=== PATIENT | male | born 1975 | race Caucasian/White ===

== ENCOUNTER 2023-12-25 05:23 | Day surgery (SDC) | payer MEDICAID ==
[2023-12-14 14:27] LABS: BASOPHILS # (AUTO) 0.1 X10'3 (0-0.2); BASOPHILS % (AUTO) 0.7 % (0-1); EOSINOPHILS # (AUTO) 0.5 X10'3 (0-0.9); EOSINOPHILS % (AUTO) 5.2 % (0-6); LYMPHOCYTES % (AUTO) 19.5 % (21-51); MEAN CORPUSCULAR HEMOGLOBIN 29.1 PG (27.0-31.0); MEAN CORPUSCULAR HGB CONC 33.8 g/dL (33.0-36.5); MEAN CORPUSCULAR VOLUME 86.2 FL (78-98); MEAN PLATELET VOLUME 7.9 FL (7.4-10.4); MONOCYTES # (AUTO) 0.6 X10'3 (0-0.9); MONOCYTES % (AUTO) 5.5 % (2-12); NEUTROPHILS # (AUTO) 7.1 X10'3 (1.8-7.7); NEUTROPHILS % (AUTO) 69.1 % (42-75); PRE OP HEMATOCRIT 44.4 % (42.0-52.0); PRE OP PLATELET COUNT 291 X10'3 (140-440); PRE OP WHITE BLOOD COUNT 10.3 10'3 (4.8-10.8); RED BLOOD COUNT 5.15 X10'6 (4.70-6.10); RED CELL DISTRIBUTION WIDTH 14.2 % (11.5-14.5)
[2023-12-14 14:36] LABS: BILIRUBIN,URINE NEGATIVE (Neg); CLARITY,URINE CLEAR (Clear); COLOR,URINE YELLOW (Yellow); GLUCOSE, URINE NEGATIVE (Neg); KETONES,URINE NEGATIVE (Neg); LEUKOCYTE ESTERASE ,URINE NEGATIVE (Neg); NITRITES, URINE NEGATIVE (Neg); OCCULT BLOOD,URINE NEGATIVE (Neg); PH,URINE 5.5 (4.8-8.0); PROTEIN,URINE NEGATIVE (Neg); UROBILINOGEN,URINE 0.2 E.U/dL (0.2-1.0)
[2023-12-14 14:43] LABS: UA COLLECTION TYPE CLN CATCH MIDSTREAM
[2023-12-14 14:57] LABS: ALBUMIN 3.7 G/DL (3.4-5.0); ALBUMIN/GLOBULIN RATIO 0.9 (1.1-1.5); ALKALINE PHOSPHATASE 120 IU/L (46-116); BLOOD UREA NITROGEN 21 MG/DL (7-18); BUN/CREATININE RATIO 18.6 (10.0-20.0); CALCIUM 8.8 MG/DL (8.5-10.1); CHLORIDE 106 MMOL/L (99-107); CREATININE 1.13 MG/DL (0.60-1.10); PRE OP ALT 36 U/L (30-65); PRE OP ANION GAP 5 (8-16); PRE OP AST 22 U/L (10-37); PRE OP BILIRUB, TOTAL 0.4 MG/DL (0.0-1.0); PRE OP GLUCOSE 84 MG/DL (70-104); PRE OP POTASSIUM 4.1 MMOL/L (3.4-5.1); PRE OP SODIUM 139 MMOL/L (135-145); eGFR 70 ML/MIN
[2023-12-14 15:13] LABS: PLATELET ESTIMATE NORMAL; TOTAL CELLS COUNTED 100; TOXIC GRANULATION 1+
[2023-12-25] VITALS (8 sets, daily range): BP systolic 115–129; BP diastolic 69–87; PULSE 60–76; RESP 13–16; TEMP 97.2; O2SAT 95–98
[~2023-12-25] VITALS: Ht 170.2 cm; Wt 119.0 kg
[~2023-12-25 05:23] MED LIST: CANNABIS INH
[2023-12-25] MEDS: famotidine 20mg tablet PO ONE (06:03)
[2023-12-25] MEDS: ringers solution, lacted 1,000 ML IV SCH ×2 (06:03→09:12)
[2023-12-25] MEDS: cefazolin 2gm/D5W 100mL 100 ML IV ONE (06:04)
[2023-12-25] MEDS ORDERED: bacitracin 15gm ointment TP ONE (06:41)
[2023-12-25] MEDS ORDERED: BUPIVAcaine/PF 2.5mg/ml (0.25%) 10ml vial ONE (06:41)
[2023-12-25] MEDS ORDERED: fentaNYL/PF 50MCG/1 ML 2ML syringe ONE (07:24)
[2023-12-25] MEDS ORDERED: MIDAZolam 1 MG/ML 5ML VIAL ONE (07:24)
[2023-12-25] MEDS ORDERED: sevoflurane 250ml liquid IH ONE (07:25)
[2023-12-25] MEDS ORDERED: cloNIDine hcl/PF 100mcg/ml inj ONE (07:28)
[2023-12-25] MEDS ORDERED: ROPIVAcaine 0.5% (5mg/ml) 30ml vial ONE (07:43)
[2023-12-25] MEDS ORDERED: rocuronium 10mg/ml inj IV ONE (08:06)
[2023-12-25] MEDS ORDERED: LIDOcaine 2% jelly 6ml syringe ***for topical use only ONE (08:06)
[2023-12-25] MEDS ORDERED: LIDOcaine 2% (20mg/ml) 5ml vial ONE (08:06)
[2023-12-25] MEDS ORDERED: propofol inj 20 ML IV ONE (08:06)
[2023-12-25] MEDS ORDERED: proCHLORperazine 10 MG/2 ml inj IV PRN (08:30)
[2023-12-25] MEDS ORDERED: labetalol 20mg/4ml (5mg/ml) syringe IV PRN (08:30)
[2023-12-25] MEDS ORDERED: ondansetron/PF 4mg/2ml inj IV PRN (08:30)
[2023-12-25] MEDS ORDERED: meperidine/PF 25mg/ml syringe IV PRN ×3 (08:30)
[2023-12-25] MEDS ORDERED: morphine 2 MG/ML inj. syringe IV PRN (08:30)
[2023-12-25] MEDS ORDERED: morphine 4 MG/ML inj SYRINge IV PRN (08:30)
[2023-12-25] MEDS ORDERED: enalaprilat dihydrate 2.5mg/2ml vial IV PRN (08:30)
== END 2023-12-25 10:22 | disposition home or self-care (01) ==
LOC: PAS IN 05:23 → UNDOADMIN 05:23 → PAS 05:23 → EDSTATUS 07:30 → UNDODISIN 10:02 → PAS 10:22
PROVIDERS: ATTEND Podiatrist Foot & Ankle Surgery
DX: M76.62 Achilles tendinitis, left leg (principal); M77.32 Calcaneal spur, left foot; M21.6X2 Other acquired deformities of left foot; F10.10 Alcohol abuse, uncomplicated; F15.10 Other stimulant abuse, uncomplicated; G89.18 Other acute postprocedural pain; E66.01 Morbid (severe) obesity due to excess calories; Z68.38 Body mass index [BMI] 38.0-38.9, adult; F12.90 Cannabis use, unspecified, uncomplicated; Z98.890 Other specified postprocedural states; Z72.89 Other problems related to lifestyle; Z87.442 Personal history of urinary calculi; Z79.899 Other long term (current) drug therapy
CPT/HCPCS: 27654; 27687; 28119; 36415; 64445; 73650; 80053; 81003; 82948; 85025; 93005; A6222; C1713; J0690; J0735; J1100; J2250; J2405; J2704; J2710; J2795; J3010; J3490; J7030; J7120; Z7506; Z7508; Z7512; 76000; 85007; A4215; A4618; A6253; A6449; A7000